=== PATIENT | female | born 1940 | race Caucasian/White ===

== ENCOUNTER 2017-11-04 12:32 | Emergency (ER) | payer MEDICAID, MEDICARE, OTHER ==
[~2017-11-04] VITALS: Ht 170.2 cm; Wt 66.0 kg
[~2017-11-04 12:32] MED LIST: HYDR25TA PO; LISI-604 PO; METO-539 PO; TRAM50TA3 PO
[2017-11-04 13:41] LABS: BASOPHILS % 0.8 % (0.0-2.0); EOSINOPHILS % 0.5 % (0.0-5.0); HEMATOCRIT. 44.2 % (36.0-48.0); HEMOGLOBIN. 15.3 g/dL (12.0-16.0); LYMPHOCYTES % 17.8 % (20.0-50.0); MEAN CORPUSCULAR HEMOGLOBIN 33.7 pg (28.0-32.0); MEAN CORPUSCULAR VOLUME 97.2 fL (81.0-99.0); MEAN PLATELET VOLUME 7.5 fl (7.4-10.4); MONOCYTES % 7.7 % (2.0-8.0); NEUTROPHILS % 73.2 % (40.0-76.0); PLATELET 281 x1000/uL (130-400); RED BLOOD CELL COUNT 4.55 mill/uL (4.2-5.4)
[2017-11-04] MEDS ORDERED: MECLIZINE 25MG TABLET PO ONE (13:45)
[2017-11-04 13:47] LABS: CHLORIDE 105 mEq/L (98-107)
[2017-11-04 13:50] LABS: PARTIAL THROMBOPLASTIN TIME 24.5 sec (23.4-31.0); PROTHROMBIN TIME 10.3 sec (9.4-11.6)
[2017-11-04 17:07] VITALS: BP 168/76
== END 2017-11-04 17:11 | disposition home or self-care (01) ==
LOC: ER 13:41
DX: R42 Dizziness and giddiness (principal); I10 Essential (primary) hypertension; Z88.0 Allergy status to penicillin; Z91.018 Allergy to other foods; Z91.011 Allergy to milk products; Z90.710 Acquired absence of both cervix and uterus; Z88.6 Allergy status to analgesic agent
CPT/HCPCS: 36415; 70450; 80053; 83735; 84484; 85025; 85610; 85730; 93005; 99285; Z7610; J8597

== ENCOUNTER 2019-08-07 17:09 | Inpatient (IN) | payer MEDICARE, MEDICAID ==
[~2019-08-07] VITALS: Ht 154.9 cm; Wt 54.4 kg
[2019-08-07] MEDS ORDERED: CLONIDINE 0.2MG TABLET PO ONE (17:45)
[2019-08-07] MEDS ORDERED: SODIUM CHLORIDE 0.9% 500 ML IV ONE (17:45)
[2019-08-07 17:51] LABS: BASOPHILS % 0.7 % (0.0-2.0); EOSINOPHILS % 0.7 % (0.0-5.0); HEMATOCRIT. 45.8 % (36.0-48.0); HEMOGLOBIN. 15.6 g/dL (12.0-16.0); LYMPHOCYTES % 16.1 % (20.0-50.0); MEAN CORPUSCULAR HEMOGLOBIN 32.4 pg (28.0-32.0); MONOCYTES % 5.4 % (2.0-8.0); NEUTROPHILS % 77.1 % (40.0-76.0); PLATELET 267 x1000/uL (130-400); RED BLOOD CELL COUNT 4.82 mill/uL (4.2-5.4); RED CELL DISTRIBUTION WIDTH 14.1 % (11.6-14.6)
[2019-08-07 17:59] LABS: CHLORIDE 104 mEq/L (98-107)
[2019-08-07 19:25] LABS: CLARITY URINE CLEAR (CLEAR); COLOR URINE YELLOW (YELLOW); KETONES URINE NEGATIVE (NEGATIVE); LEUKOCYTE ESTERASE URINE NEGATIVE (NEGATIVE); NITRITE URINE NEGATIVE (NEGATIVE); OCCULT BLOOD URINE NEGATIVE (NEGATIVE); PROTEIN URINE NEGATIVE (NEGATIVE); SPECIFIC GRAVITY URINE 1.006 (1.005-1.030); UROBILINOGEN URINE 0.2 E.U./dL (0.2-1.0)
[2019-08-07] MEDS ORDERED: LABETALOL 5MG/ML SYR 20 MG/4 ML SYRINGE IV ONE (23:30)
[2019-08-08] MEDS ORDERED: MAGNESIUM/ALUMINUM HYDROXIDE/SIMETHICONE 30ML UDC PO PRN (05:15)
[2019-08-08] MEDS ORDERED: MECLIZINE 25MG TABLET PO PRN (05:15)
[2019-08-08] MEDS ORDERED: GUAIFENESIN 200MG/10ML SUGAR FREE UDC PO PRN (05:15)
[2019-08-08] MEDS ORDERED: HYDROCODONE/ACETAMINOPHEN 5/325MG TABLET PO PRN (05:15)
[2019-08-08] MEDS ORDERED: DOCUSATE SODIUM 100MG CAPSULE PO PRN (05:15)
[2019-08-08] MEDS ORDERED: ONDANSETRON HCL 4MG/2ML INJ IV PRN (05:15)
[2019-08-08] MEDS ORDERED: LISINOPRIL 10MG TABLET PO SCH (06:30)
[2019-08-08] MEDS ORDERED: HYDRALAZINE HCL 25MG TABLET PO PRN (07:15)
[2019-08-08] MEDS ORDERED: HYDRALAZINE HCL 25MG TABLET PO SCH (09:00)
[2019-08-08] MEDS ORDERED: NITROGLYCERIN 0.4MG TABLET SL SL PRN (10:30)
[2019-08-08] MEDS: LISINOPRIL 10MG TABLET PO SCH (11:30)
[2019-08-08 11:32] LABS: T4 FREE 1.25 ng/dL (0.76-1.46)
[2019-08-08 11:51] VITALS: BP 171/70
[2019-08-08 12:00] VITALS: BP 111/43
[2019-08-08] MEDS: ENOXAPARIN 40MG/0.4ML SYR SUBCUT SCH (12:08)
[2019-08-08 14:11] LABS: FOLIC ACID (FOLATE) SERUM 7.3 ng/mL (>5.38)
[2019-08-08 16:16] VITALS: BP 107/40
[2019-08-08 20:00] VITALS: BP 140/59
[2019-08-08] MEDS: FAMOTIDINE 20MG TABLET PO SCH (20:28)
[2019-08-09] VITALS: BP 138/50
[2019-08-09] MEDS: ZOLPIDEM TARTRATE 5MG TABLET PO PRN ×2 (02:41→21:51)
[2019-08-09 04:00] VITALS: BP 127/60
[2019-08-09 06:53] LABS: BASOPHILS % 0.8 % (0.0-2.0); EOSINOPHILS % 3.2 % (0.0-5.0); HEMOGLOBIN. 13.8 g/dL (12.0-16.0); LYMPHOCYTES % 20.5 % (20.0-50.0); MEAN CORPUSCULAR HEMOGLOBIN 32.6 pg (28.0-32.0); MEAN CORPUSCULAR VOLUME 94.2 fL (81.0-99.0); MEAN PLATELET VOLUME 7.5 fl (7.4-10.4); MONOCYTES % 10.9 % (2.0-8.0); NEUTROPHILS % 64.6 % (40.0-76.0); PLATELET 230 x1000/uL (130-400); RED BLOOD CELL COUNT 4.25 mill/uL (4.2-5.4); RED CELL DISTRIBUTION WIDTH 14.3 % (11.6-14.6)
[2019-08-09 07:05] LABS: CHLORIDE 107 mEq/L (98-107)
[2019-08-09] MEDS: LISINOPRIL 10MG TABLET PO SCH (07:59)
[2019-08-09 08:00] VITALS: BP 198/75
[2019-08-09] MEDS: FAMOTIDINE 20MG TABLET PO SCH (08:00)
[2019-08-09] MEDS: ASPIRIN 81MG EC TABLET PO SCH (08:00)
[2019-08-09] MEDS ORDERED: CLONIDINE 0.1MG TABLET PO PRN (08:45)
[2019-08-09] MEDS ORDERED: LISINOPRIL 40MG TABLET PO SCH (09:00)
[2019-08-09] MEDS ORDERED: ASPIRIN 325MG EC TABLET PO SCH (09:00)
[2019-08-09] MEDS: ENOXAPARIN 40MG/0.4ML SYR SUBCUT SCH (11:30)
[2019-08-09] MEDS: HYDRALAZINE HCL 50MG TABLET PO SCH ×2 (14:59→21:51)
[2019-08-09] MEDS: LOSARTAN POTASSIUM 25 MG TABLET PO SCH ×2 (14:59→21:51)
[2019-08-09 16:00] VITALS: BP_SYST 166; BP_SYST 171; BP_SYST 178; BP_DIAS 61; BP_DIAS 65; BP_DIAS 72
[2019-08-09 16:35] VITALS: BP 154/72
[2019-08-09] MEDS ORDERED: HALOPERIDOL LACTATE 5MG/ML VIAL IM NR (23:00)
[2019-08-10 00:44] VITALS: BP 171/78
[2019-08-10 04:00] VITALS: BP 166/84
[2019-08-10] MEDS: LOSARTAN POTASSIUM 25 MG TABLET PO SCH (06:27)
[2019-08-10] MEDS: HYDRALAZINE HCL 50MG TABLET PO SCH (06:28)
[2019-08-10 07:10] LABS: CHLORIDE 108 mEq/L (98-107)
[2019-08-10 07:38] LABS: BASOPHILS % 0.5 % (0.0-2.0); EOSINOPHILS % 0.8 % (0.0-5.0); HEMATOCRIT. 41.1 % (36.0-48.0); HEMOGLOBIN. 14.3 g/dL (12.0-16.0); LYMPHOCYTES % 13.8 % (20.0-50.0); MEAN CORPUSCULAR HEMOGLOBIN 32.3 pg (28.0-32.0); MEAN CORPUSCULAR VOLUME 93.4 fL (81.0-99.0); MEAN PLATELET VOLUME 7.5 fl (7.4-10.4); MONOCYTES % 10.3 % (2.0-8.0); NEUTROPHILS % 74.6 % (40.0-76.0); PLATELET 239 x1000/uL (130-400); RED BLOOD CELL COUNT 4.41 mill/uL (4.2-5.4)
[2019-08-10 08:02] VITALS: BP 173/79
[2019-08-10] MEDS: FAMOTIDINE 20MG TABLET PO SCH (08:42)
[2019-08-10] MEDS: ASPIRIN 81MG EC TABLET PO SCH (08:42)
[2019-08-10] MEDS ORDERED: AMLODIPINE 5MG TABLET PO SCH (09:30)
[2019-08-10] MEDS ORDERED: POTASSIUM CHLORIDE 20MEQ TABLET SR PO NR (10:30)
[2019-08-10] MEDS: ENOXAPARIN 40MG/0.4ML SYR SUBCUT SCH (10:58)
[2019-08-10 12:07] VITALS: BP 152/76
[2019-08-10 13:08] VITALS: BP 152/76
[2019-08-10] MEDS ORDERED: HYDRALAZINE HCL 50MG TABLET PO SCH (14:00)
== END 2019-08-10 14:15 | disposition home or self-care (01) | DRG 201 ==
LOC: ER 17:09 → 6WST 23:20 → EDBEDREQTM 23:26 → EDBEDREQ 23:26 → ENRESERV 08-08 08:55
PROVIDERS: ADMIT Hospitalist; ATTEND Hospitalist
DX: R00.1 Bradycardia, unspecified (principal); G93.40 Encephalopathy, unspecified; Z78.1 Physical restraint status; I65.23 Occlusion and stenosis of bilateral carotid arteries; J44.9 Chronic obstructive pulmonary disease, unspecified; I10 Essential (primary) hypertension; R55 Syncope and collapse; R79.89 Other specified abnormal findings of blood chemistry; M19.90 Unspecified osteoarthritis, unspecified site; M54.30 Sciatica, unspecified side; T44.7X5A Adverse effect of beta-adrenoreceptor antagonists, initial encounter; E87.6 Hypokalemia; Z79.899 Other long term (current) drug therapy; Z88.6 Allergy status to analgesic agent; Z88.0 Allergy status to penicillin; Z91.011 Allergy to milk products; Z91.018 Allergy to other foods; Z90.710 Acquired absence of both cervix and uterus; Y92.009 Unspecified place in unspecified non-institutional (private) residence as the place of occurrence of the external cause
CPT/HCPCS: 36415; 70551; 71045; 80048; 80053; 80061; 81003; 82140; 82607; 82746; 83036; 83540; 83550; 83880; 84439; 84443; 84484; 85025; 93005; 93306; 93880; 93970; 99291; J1630; J1650; J3490; J7040; J8597